=== PATIENT | male | born 1980 | race Caucasian/White ===

== ENCOUNTER → 2020-04-19 | Outpatient (CLI) | payer OTHER | LOC: KOH-I 09:45 | DX: M25.442 Effusion, left hand (principal); M25.542 Pain in joints of left hand; G89.29 Other chronic pain; S66.112A Strain of flexor muscle, fascia and tendon of right middle finger at wrist and hand level, initial encounter; R93.7 Abnormal findings on diagnostic imaging of other parts of musculoskeletal system; X58.XXXA Exposure to other specified factors, initial encounter | CPT/HCPCS: 73218 ==